=== PATIENT | female | born 1965 | race Caucasian/White ===

== ENCOUNTER 2018-11-07 10:23 | Emergency (ER) | payer MEDICAID, OTHER ==
[~2018-11-07] VITALS: Ht 157.5 cm; Wt 56.8 kg
[~2018-11-07 10:23] MED LIST: DIPH-423 PO
[2018-11-07 10:40] VITALS: BP 169/101
[2018-11-07] MEDS ORDERED: CYCL-1 PO (11:14)
[2018-11-07] MEDS ORDERED: ACET-3067 PO (11:14)
[2018-11-07] MEDS ORDERED: IBUP-1984 PO (11:14)
[2018-11-07] MEDS ORDERED: ketorolac trometh inj. 60 MG/2 ML VIAL IM ONE (11:15)
== END 2018-11-07 12:08 | disposition home or self-care (01) ==
LOC: ER 10:24
DX: M54.40 Lumbago with sciatica, unspecified side (principal); R20.0 Anesthesia of skin; F12.90 Cannabis use, unspecified, uncomplicated; Z79.899 Other long term (current) drug therapy
CPT/HCPCS: 96372; 99283; J1885

== ENCOUNTER 2020-03-06 21:00 | Emergency (ER) | payer MEDICAID ==
[~2020-03-06] VITALS: Ht 157.5 cm; Wt 59.1 kg
[~2020-03-06 21:00] MED LIST changes: +CYCL-1 PO
[2020-03-06] MEDS ORDERED: mupirocin 2% ointment 22GM TP STA (21:44)
[2020-03-06] MEDS ORDERED: mupirocin 2% nasal ointment 1gm UD NS STA (21:59)
[2020-03-06] MEDS ORDERED: DOXYCYCLINE 100MG CAPSULE PO STA (22:34)
[2020-03-06] MEDS ORDERED: DOXY100C2 PO (22:37)
[2020-03-06 22:49] LABS: CLARITY,URINE SLIGHTLY CLOUDY (Clear); COLOR,URINE AMBER (Yellow); GLUCOSE, URINE NEGATIVE (Neg); KETONES,URINE NEGATIVE (Neg); LEUKOCYTE ESTERASE ,URINE NEGATIVE (Neg); NITRITES, URINE NEGATIVE (Neg); OCCULT BLOOD,URINE LARGE (Neg); PH,URINE 5.5 (4.8-8.0); PROTEIN,URINE TRACE mg/dl (Neg)
[2020-03-06 22:51] LABS: UA COLLECTION TYPE CLN CATCH MIDSTREAM
[2020-03-06 22:59] LABS: BACTERIA,URINE 1+ /HPF (Neg); MUCUS STRANDS MANY /LPF (Neg); SQUAMOUS EPITHELIAL CELL,UR MANY /LPF (FEW)
[2020-03-06 23:00] LABS: CAL OXALATE CRYSTALS 2+ /HPF (NEGATIVE)
[2020-03-06 23:02] VITALS: BP 143/95
== END 2020-03-06 23:04 | disposition home or self-care (01) ==
LOC: ER 21:00
DX: S30.861A Insect bite (nonvenomous) of abdominal wall, initial encounter (principal); R23.8 Other skin changes; F41.9 Anxiety disorder, unspecified; F12.90 Cannabis use, unspecified, uncomplicated; Z59.0 Homelessness; Z79.899 Other long term (current) drug therapy
CPT/HCPCS: 81001; 99283

== ENCOUNTER 2021-06-26 11:02 | Emergency (ER) | payer MEDICAID ==
[~2021-06-26] VITALS: Ht 157.5 cm; Wt 59.1 kg
[2021-06-26 11:20] VITALS: BP 117/83
[2021-06-26] MEDS ORDERED: DOXY100C97 PO (11:28)
== END 2021-06-26 11:45 | disposition home or self-care (01) ==
LOC: ER 11:02
DX: L03.113 Cellulitis of right upper limb (principal); F41.9 Anxiety disorder, unspecified; Z59.00 Homelessness unspecified
CPT/HCPCS: 99283

== ENCOUNTER 2021-07-06 14:33 | Emergency (ER) | payer MEDICAID ==
[~2021-07-06] VITALS: Ht 157.5 cm; Wt 59.1 kg
[~2021-07-06 14:33] MED LIST changes: +DOXY100C97 PO
[2021-07-06 15:58] VITALS: BP 144/92
== END 2021-07-06 21:11 | disposition left against medical advice (07) ==
LOC: ER 14:34
DX: L03.90 Cellulitis, unspecified (principal); Z53.21 Procedure and treatment not carried out due to patient leaving prior to being seen by health care provider

== ENCOUNTER 2021-07-08 10:15 | Emergency (ER) | payer MEDICAID ==
[~2021-07-08] VITALS: Ht 157.5 cm; Wt 54.0 kg
[~2021-07-08 10:15] MED LIST changes: -DOXY100C97 PO
[2021-07-08 10:29] VITALS: BP 167/85
--- NOTE | 2021-07-08 13:45 | NUR ---
Patient has several wounds on her right forearm. Patient finished antibiotics 3 days ago. Patient c/o itching. Appears to be healing wounds. Wounds do not look infected. Continue to monitor.
[2021-07-08] MEDS ORDERED: LIDOcaine 1% 30ml preserv. free vial IJ ONE (14:15)
[2021-07-08] MEDS ORDERED: DOXY-1 PO (15:00)
[2021-07-08] MEDS ORDERED: bacitracin 15gm ointment TP ONE (15:00)
--- NOTE | 2021-07-08 15:05 | NUR ---
Emely Groves injecting lidocaine and made and incision on one of the wounds for possible drainage. No drainage seen. Continue to monitor.
--- NOTE | 2021-07-08 15:45 | NUR ---
Wounds cleaned and dressed by nurse Beltre. Patient tolerated well. Continue to monitor.
== END 2021-07-08 16:12 | disposition home or self-care (01) ==
LOC: ER 10:16
DX: L03.113 Cellulitis of right upper limb (principal); F41.9 Anxiety disorder, unspecified; Z59.00 Homelessness unspecified
CPT/HCPCS: 10060; 99283

== ENCOUNTER 2021-07-22 10:56 | Emergency (ER) | payer MEDICAID ==
[~2021-07-22] VITALS: Ht 157.5 cm; Wt 54.0 kg
[2021-07-22 11:06] VITALS: BP 153/84
[2021-07-22] MEDS ORDERED: CEPH-585 PO (13:45)
[2021-07-22] MEDS ORDERED: gentamicin 0.1% topical ointment 15gm TP ONE (13:45)
== END 2021-07-22 14:40 | disposition home or self-care (01) ==
LOC: ER 10:57
DX: Z48.00 Encounter for change or removal of nonsurgical wound dressing (principal); L02.413 Cutaneous abscess of right upper limb; F17.200 Nicotine dependence, unspecified, uncomplicated; F12.90 Cannabis use, unspecified, uncomplicated; Z72.89 Other problems related to lifestyle; Z59.00 Homelessness unspecified; Z79.2 Long term (current) use of antibiotics; Z79.899 Other long term (current) drug therapy
CPT/HCPCS: 99283